=== PATIENT | female | born 1955 ===

== ENCOUNTER 2020-12-28 19:56 | Inpatient (IN) | payer OTHER ==
[~2020-12-28] VITALS: Ht 157.5 cm; Wt 77.1 kg
[2020-12-28] MEDS ORDERED: SYNTHROID50 MCG (20:04)
[2020-12-28] MEDS ORDERED: VASOTEC10 MG (20:04)
[2020-12-30] MEDS ORDERED: TRIAMCINOLONE A15 G1 (14:42)
== END 2020-12-30 16:25 | disposition designated cancer center or children's hospital (05) | DRG 282 ==
LOC: ER 19:56 → ICU 12-29 10:05 → ICU-2 12-29 10:05 → ICU 12-29 13:00
PROVIDERS: ADMIT Internal Medicine; ATTEND Internal Medicine
PROC: B020ZZZ Computerized Tomography (CT Scan) of Brain (ICD-10-PCS; principal; 2020-12-28)
PROC: B24BYZZ Ultrasonography of Heart with Aorta using Other Contrast (ICD-10-PCS; 2020-12-29)
DX: I21.4 Non-ST elevation (NSTEMI) myocardial infarction (principal); R55 Syncope and collapse; I10 Essential (primary) hypertension; E03.8 Other specified hypothyroidism